=== PATIENT | female | born 1975 | race Caucasian/White ===

== ENCOUNTER 2018-07-07 22:14 | Emergency (ER) | payer OTHER ==
[~2018-07-07] VITALS: Ht 170.2 cm; Wt 54.9 kg
[2018-07-07] MEDS ORDERED: PROZAC10 MG PO (23:26)
[2018-07-07] MEDS ORDERED: NEXIUM40 MG PO (23:27)
[2018-07-07] MEDS ORDERED: CARVEDILOL12.5 MG PO (23:27)
[2018-07-07] MEDS ORDERED: PAXIL20 MG PO (23:27)
[2018-07-07 23:42] LABS: HEMATOCRIT 37.6 % (37.0-47.0); MCH 32.2 pg (26.0-34.0); MCHC 34.4 g/dL (28.0-37.0); MCV 93.5 fL (80.0-100.0); RBC 4.03 mil/uL (4.20-5.00); RDW 14.2 % (10.5-14.5); WBC 4.2 thou/uL (4.0-11.0)
[2018-07-07 23:55] LABS: ANION GAP 11 mmol/L (7-16); BUN 8 mg/dL (7-18); CALCIUM 8.6 mg/dL (8.5-10.1); CHLORIDE 107 mmol/L (98-107); CO2 24 mmol/L (21-32); CREATININE 0.8 mg/dL (0.6-1.0); GLUCOSE 93 mg/dL (74-106); POTASSIUM 3.6 mmol/L (3.5-5.1); SODIUM 142 mmol/L (136-145)
[2018-07-07 23:59] LABS: SALICYLATE < 2.8 mg/dL (2.8-20.0)
[2018-07-08 00:23] LABS: URINE BILIRUBIN NEGATIVE (Negative); URINE BLOOD TRACE (Negative); URINE CLARITY CLEAR; URINE COLOR YELLOW; URINE GLUCOSE-RANDOM* NEGATIVE (Negative); URINE KETONES NEGATIVE (Negative); URINE LEUKOCYTES-REFLEX NEGATIVE (Negative); URINE NITRITE-REFLEX NEGATIVE (Negative); URINE PROTEIN (DIPSTICK) NEGATIVE (Negative); URINE UROBILINOGEN 0.2 E.U./dl (0.2-1.0)
[2018-07-08 00:34] LABS: AMP/METHAMP Negative (Negative); BARBITURATES Negative (Negative); BENZODIAZEPINES Negative (Negative); COCAINE Negative (Negative); METHADONE Negative (Negative); OPIATES Negative (Negative); PCP Negative (Negative)
[2018-07-08] MEDS ORDERED: ATIVAN0.5 M1 PO (01:47)
[2018-07-08 01:56] VITALS: BP 124/76
[2018-07-10 17:10] LABS: TRICYCLIC (TCA) CONFIRMATION Negative ng/mL (Cutoff=100)
== END 2018-07-08 01:57 | disposition home or self-care (01) ==
LOC: ER 22:14
PROVIDERS: Emergency Medicine
DX: F41.9 Anxiety disorder, unspecified (principal); T43.225A Adverse effect of selective serotonin reuptake inhibitors, initial encounter; F50.2 Bulimia nervosa; I10 Essential (primary) hypertension; F32.9 Major depressive disorder, single episode, unspecified; Z88.2 Allergy status to sulfonamides; Z88.8 Allergy status to other drugs, medicaments and biological substances; Y92.89 Other specified places as the place of occurrence of the external cause

== ENCOUNTER 2018-07-18 22:23 | Emergency (ER) | payer OTHER ==
[~2018-07-18] VITALS: Ht 170.2 cm; Wt 56.7 kg
--- NOTE | ~2018-07-18 | EKG ---
[address] [address] ELECTROCARDIOGRAM REPORT Name: USMAN GARCIA Room #: [id number] Admission: 07/18/18 Attend Phys: Discharge: 07/19/18 Date of : 73 Report #: [id number] THIS REPORT FOR: //name// 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
[~2018-07-18 22:23] MED LIST: ATIVAN0.5 M1 PO; CARVEDILOL12.5 MG PO; NEXIUM40 MG PO; PAXIL20 MG PO; PROZAC10 MG PO
[2018-07-18] MEDS ORDERED: XANAX 0.25 MG0.25 MG PO (22:51)
[2018-07-18 22:59] LABS: HEMOGLOBIN 12.8 gm/dL (12.0-15.0); MCH 32.1 pg (26.0-34.0); MCHC 33.7 g/dL (28.0-37.0); MCV 95.1 fL (80.0-100.0); RDW 14.3 % (10.5-14.5); WBC 4.7 thou/uL (4.0-11.0)
[2018-07-18 23:02] LABS: URINE BILIRUBIN NEGATIVE (Negative); URINE BLOOD TRACE (Negative); URINE CLARITY CLEAR; URINE COLOR YELLOW; URINE GLUCOSE-RANDOM* NEGATIVE (Negative); URINE KETONES NEGATIVE (Negative); URINE LEUKOCYTES-REFLEX NEGATIVE (Negative); URINE NITRITE-REFLEX NEGATIVE (Negative); URINE PROTEIN (DIPSTICK) NEGATIVE (Negative); URINE SPECIFIC GRAVITY <= 1.005 (1.005-1.035); URINE UROBILINOGEN 0.2 E.U./dl (0.2-1.0)
[2018-07-18 23:06] LABS: ANION GAP 5 mmol/L (7-16); BUN 9 mg/dL (7-18); CALCIUM 9.5 mg/dL (8.5-10.1); CHLORIDE 107 mmol/L (98-107); CO2 28 mmol/L (21-32); CREATININE 0.8 mg/dL (0.6-1.0); GLUCOSE 92 mg/dL (74-106); POTASSIUM 3.8 mmol/L (3.5-5.1); SODIUM 140 mmol/L (136-145)
[2018-07-18 23:13] LABS: ALBUMIN 3.5 g/dL (3.4-5.0); SALICYLATE < 2.8 mg/dL (2.8-20.0); SGOT 17 U/L (15-37); SGPT 19 U/L (30-65); TOTAL BILIRUBIN 0.2 mg/dL (<0.1-1.0); TOTAL PROTEIN 6.7 g/dL (6.4-8.2)
[2018-07-18 23:16] LABS: AMP/METHAMP Negative (Negative); BARBITURATES Negative (Negative); BENZODIAZEPINES Negative (Negative); COCAINE Negative (Negative); METHADONE Negative (Negative); OPIATES Negative (Negative); PCP Negative (Negative)
[2018-07-19 01:34] VITALS: BP 135/84
== END 2018-07-19 01:38 | disposition home or self-care (01) ==
LOC: ER 22:23
PROVIDERS: Emergency Medicine
DX: F10.129 Alcohol abuse with intoxication, unspecified (principal); I10 Essential (primary) hypertension; F32.9 Major depressive disorder, single episode, unspecified; Z88.4 Allergy status to anesthetic agent; Z88.8 Allergy status to other drugs, medicaments and biological substances; Z88.6 Allergy status to analgesic agent; Z88.2 Allergy status to sulfonamides; Y90.0 Blood alcohol level of less than 20 mg/100 ml

== ENCOUNTER 2019-03-09 01:56 | Emergency (ER) | payer OTHER ==
[~2019-03-09] VITALS: Ht 170.2 cm; Wt 65.8 kg
[~2019-03-09 01:56] MED LIST changes: +XANAX 0.25 MG0.25 MG PO
[2019-03-09 02:46] LABS: URINE BILIRUBIN NEGATIVE (Negative); URINE BLOOD 2+ (Negative); URINE CLARITY CLEAR; URINE COLOR YELLOW; URINE GLUCOSE-RANDOM* NEGATIVE (Negative); URINE KETONES NEGATIVE (Negative); URINE LEUKOCYTES-REFLEX NEGATIVE (Negative); URINE NITRITE-REFLEX NEGATIVE (Negative); URINE PROTEIN (DIPSTICK) NEGATIVE (Negative); URINE UROBILINOGEN 0.2 E.U./dl (0.2-1.0)
[2019-03-09 02:54] LABS: AMP/METHAMP Negative (Negative); BARBITURATES Negative (Negative); BENZODIAZEPINES Negative (Negative); COCAINE Negative (Negative); METHADONE Negative (Negative); OPIATES Negative (Negative); PCP Negative (Negative)
[2019-03-09 03:04] LABS: BACTERIA-REFLEX 1-9 Few /HPF (None Seen); CASTS None Seen /LPF (None Seen); CRYSTALS None Seen /LPF (None Seen); MUCUS 0-3 Light strn/LPF (None Seen); SQUAMOUS 4-10 Moderate /LPF (0-3); URINE RBC 3-10 Few /HPF (0-2); URINE WBC-REFLEX 0-5 Rare /HPF (0-5)
[2019-03-09] MEDS ORDERED: HYDROCHLOROTHIA25 M2 PO (03:34)
[2019-03-09] MEDS ORDERED: COZAAR 25 MG TA25 M2 PO (03:34)
[2019-03-09 03:45] LABS: ABSOLUTE NEUTROPHILS 3.1 thou/uL (1.4-8.2); BASOPHILS 0.7 % (0.0-2.0); EOSINOPHILS 2.8 % (0.0-3.0); HEMATOCRIT 37.7 % (37.0-47.0); HEMOGLOBIN 12.9 gm/dL (12.0-15.0); MCH 32.3 pg (26.0-34.0); MCHC 34.1 g/dL (28.0-37.0); MCV 94.6 fL (80.0-100.0); MONOCYTES 5.5 % (1.0-8.0); PLATELET COUNT 119 thou/uL (150-400); RBC 3.98 mil/uL (4.20-5.00); RDW 13.7 % (10.5-14.5); WBC 4.5 thou/uL (4.0-11.0)
[2019-03-09 03:54] LABS: ANION GAP 9 mmol/L (7-16); BUN 14 mg/dL (7-18); CALCIUM 9.2 mg/dL (8.5-10.1); CHLORIDE 103 mmol/L (98-107); CO2 29 mmol/L (21-32); CREATININE 0.8 mg/dL (0.6-1.0); GLUCOSE 90 mg/dL (74-106); SODIUM 141 mmol/L (136-145)
[2019-03-09 04:00] LABS: ALBUMIN 3.7 g/dL (3.4-5.0); SALICYLATE < 2.8 mg/dL (2.8-20.0); SGOT 43 U/L (15-37); SGPT 43 U/L (30-65); TOTAL BILIRUBIN 0.2 mg/dL (<0.1-1.0); TOTAL PROTEIN 6.9 g/dL (6.4-8.2)
[2019-03-09] MEDS ORDERED: PEPCID40 MG PO (06:58)
[2019-03-09 07:13] VITALS: BP 138/87
== END 2019-03-09 07:14 | disposition home or self-care (01) ==
LOC: ER 01:56
PROVIDERS: Emergency Medicine
DX: F10.129 Alcohol abuse with intoxication, unspecified (principal); R45.851 Suicidal ideations; I10 Essential (primary) hypertension; F32.9 Major depressive disorder, single episode, unspecified; Z88.5 Allergy status to narcotic agent; Z88.8 Allergy status to other drugs, medicaments and biological substances; Z88.2 Allergy status to sulfonamides

== ENCOUNTER 2019-08-24 05:52 | Emergency (ER) | payer OTHER ==
[~2019-08-24] VITALS: Ht 170.2 cm; Wt 63.5 kg
[~2019-08-24 05:52] MED LIST changes: +COZAAR 25 MG TA25 M2 PO; +HYDROCHLOROTHIA25 M2 PO; +PEPCID40 MG PO
[2019-08-24] MEDS ORDERED: QUETIAPINE FUM200 MG PO (06:01)
[2019-08-24] MEDS ORDERED: TRAZODONE HCL100 MG PO (06:02)
[2019-08-24] MEDS ORDERED: HYDROXYZINE HCL25 M2 PO (06:02)
[2019-08-24 06:22] LABS: ABSOLUTE NEUTROPHILS 5.2 thou/uL (1.4-8.2); BASOPHILS 0.7 % (0.0-2.0); EOSINOPHILS 1.6 % (0.0-3.0); HEMATOCRIT 37.7 % (37.0-47.0); HEMOGLOBIN 12.4 gm/dL (12.0-15.0); LYMPHOCYTES 11.7 % (24.0-44.0); MCH 30.4 pg (26.0-34.0); MCV 92.2 fL (80.0-100.0); MONOCYTES 6.7 % (1.0-8.0); PLATELET COUNT 83 thou/uL (150-400); POLYS 79.3 % (36.0-66.0); RBC 4.08 mil/uL (4.20-5.00); RDW 13.2 % (10.5-14.5); WBC 6.6 thou/uL (4.0-11.0)
[2019-08-24 06:31] LABS: ANION GAP 5 mmol/L (7-16); BUN 11 mg/dL (7-18); CALCIUM 9.5 mg/dL (8.5-10.1); CHLORIDE 99 mmol/L (98-107); CO2 31 mmol/L (21-32); CREATININE 0.8 mg/dL (0.6-1.0); GLUCOSE 110 mg/dL (74-106); SODIUM 135 mmol/L (136-145)
[2019-08-24 06:41] LABS: ALBUMIN 3.8 g/dL (3.4-5.0); LIPASE 139 U/L (73-393); SGOT 20 U/L (15-37); SGPT 11 U/L (30-65); TOTAL BILIRUBIN 0.3 mg/dL (<0.1-1.0); TOTAL PROTEIN 7.1 g/dL (6.4-8.2); TROPONIN-I <0.06 ng/mL (<0.06)
[2019-08-24 07:19] LABS: URINE BILIRUBIN NEGATIVE (Negative); URINE BLOOD TRACE (Negative); URINE CLARITY CLEAR; URINE COLOR YELLOW; URINE GLUCOSE-RANDOM* NEGATIVE (Negative); URINE KETONES NEGATIVE (Negative); URINE LEUKOCYTES-REFLEX NEGATIVE (Negative); URINE PROTEIN (DIPSTICK) NEGATIVE (Negative); URINE SPECIFIC GRAVITY <= 1.005 (1.005-1.035); URINE UROBILINOGEN 0.2 E.U./dl (0.2-1.0)
[2019-08-24 07:23] LABS: URINE NITRITE-REFLEX POSITIVE (Negative)
[2019-08-24 07:27] LABS: AMP/METHAMP Negative (Negative); BARBITURATES Negative (Negative); BENZODIAZEPINES Negative (Negative); COCAINE Negative (Negative); METHADONE Negative (Negative); OPIATES Negative (Negative); PCP Negative (Negative)
[2019-08-24 07:29] LABS: CASTS None Seen /LPF (None Seen); SQUAMOUS None Seen /LPF (0-3)
[2019-08-24 07:30] LABS: BACTERIA-REFLEX None Seen /HPF (None Seen); URINE RBC 0-2 Rare /HPF (0-2)
[2019-08-24 07:31] LABS: CRYSTALS None Seen /LPF (None Seen)
[2019-08-24 07:32] LABS: URINE WBC-REFLEX None Seen /HPF (0-5)
--- NOTE | 2019-08-24 08:06 | EKG ---
[place] [address] [place] [address] ELECTROCARDIOGRAM REPORT Name: USMAN GARCIA Room #: REG [facility]#: [id number] Admission: 08/24/19 Attend Phys: Discharge: Date of : 73 Report #: [id number] THIS REPORT FOR: //name// 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 : 1975 Requested By: Rd Devries Order Number: [id number] MD: Austin Pitts Measurements Intervals [place] Rate: 77 P: 64 [place]: 203 QRS: 53 QRSD: 100 T: 66 QT: 391 QTc: 443 Interpretive Statements Sinus rhythm Borderline prolonged DE interval RSR' in V1 or V2, probably normal variant Compared to ECG 07/18/2018 23:25:06 No significant changes Electronically Signed On 08-24-2019 8:06:37 [employer] by Austin Pitts [email or web address] <ELECTRONICALLY SIGNED> By: Austin Pitts MD, [facility] 08/24/19 0806 0633 2 Austin Pitts MD, FACC /EPI
[2019-08-24] MEDS ORDERED: ONDANSETRON ODT8 MG PO (08:07)
[2019-08-24] MEDS ORDERED: TRAMADOL 50 MG50 MG PO (08:07)
[2019-08-24 11:18] VITALS: BP 129/78
== END 2019-08-24 11:27 | disposition home or self-care (01) ==
LOC: ER 05:52
PROVIDERS: Emergency Medicine
DX: E87.6 Hypokalemia (principal); R11.2 Nausea with vomiting, unspecified; M54.5 Low back pain; D69.6 Thrombocytopenia, unspecified; I10 Essential (primary) hypertension; F32.9 Major depressive disorder, single episode, unspecified; Z88.2 Allergy status to sulfonamides; Z88.8 Allergy status to other drugs, medicaments and biological substances; Z79.899 Other long term (current) drug therapy

== ENCOUNTER 2019-08-26 06:34 | Emergency (ER) | payer OTHER ==
[~2019-08-26] VITALS: Ht 170.2 cm; Wt 63.5 kg
[~2019-08-26 06:34] MED LIST changes: +HYDROXYZINE HCL25 M2 PO; +ONDANSETRON ODT8 MG PO; +QUETIAPINE FUM200 MG PO; +TRAMADOL 50 MG50 MG PO; +TRAZODONE HCL100 MG PO
[2019-08-26 07:21] LABS: URINE BILIRUBIN NEGATIVE (Negative); URINE BLOOD 3+ (Negative); URINE CLARITY CLOUDY; URINE COLOR YELLOW; URINE GLUCOSE-RANDOM* NEGATIVE (Negative); URINE KETONES NEGATIVE (Negative); URINE LEUKOCYTES-REFLEX 2+ (Negative); URINE NITRITE-REFLEX POSITIVE (Negative); URINE PROTEIN (DIPSTICK) 1+ (Negative); URINE UROBILINOGEN 0.2 E.U./dl (0.2-1.0)
[2019-08-26 07:38] LABS: SQUAMOUS >10 Many /LPF (0-3)
[2019-08-26 07:39] LABS: CASTS None Seen /LPF (None Seen); CRYSTALS None Seen /LPF (None Seen)
[2019-08-26 07:40] LABS: URINE RBC 3-10 Few /HPF (0-2); URINE WBC-REFLEX 6-15 Few /HPF (0-5)
[2019-08-26 07:54] LABS: EOSINOPHILS 1.6 % (0.0-3.0); HEMATOCRIT 35.3 % (37.0-47.0); HEMOGLOBIN 11.7 gm/dL (12.0-15.0); LYMPHOCYTES 20.3 % (24.0-44.0); MCH 30.6 pg (26.0-34.0); MCHC 33.1 g/dL (28.0-37.0); MCV 92.4 fL (80.0-100.0); MONOCYTES 5.5 % (1.0-8.0); PLATELET COUNT 123 thou/uL (150-400); POLYS 71.6 % (36.0-66.0); RBC 3.83 mil/uL (4.20-5.00); RDW 13.4 % (10.5-14.5); WBC 4.2 thou/uL (4.0-11.0)
[2019-08-26 08:02] LABS: CALCIUM 8.9 mg/dL (8.5-10.1); CREATININE 0.8 mg/dL (0.6-1.0); MAGNESIUM 1.8 mg/dL (1.8-2.4); POTASSIUM 3.4 mmol/L (3.5-5.1)
[2019-08-26 08:41] LABS: URINE BILIRUBIN NEGATIVE (Negative); URINE BLOOD TRACE (Negative); URINE CLARITY SL CLOUDY; URINE COLOR YELLOW; URINE GLUCOSE-RANDOM* NEGATIVE (Negative); URINE KETONES NEGATIVE (Negative); URINE NITRITE-REFLEX NEGATIVE (Negative); URINE PROTEIN (DIPSTICK) NEGATIVE (Negative); URINE SPECIFIC GRAVITY <= 1.005 (1.005-1.035); URINE UROBILINOGEN 0.2 E.U./dl (0.2-1.0)
[2019-08-26 08:42] LABS: URINE LEUKOCYTES-REFLEX 3+ (Negative)
[2019-08-26 08:55] LABS: SQUAMOUS >10 Many /LPF (0-3)
[2019-08-26 08:56] LABS: BACTERIA-REFLEX >30 Many /HPF (None Seen); CASTS None Seen /LPF (None Seen); CRYSTALS None Seen /LPF (None Seen); URINE RBC 0-2 Rare /HPF (0-2); URINE WBC-REFLEX 6-15 Few /HPF (0-5)
[2019-08-26] MEDS ORDERED: KEFLEX500 M1 PO (09:09)
[2019-08-26] MEDS ORDERED: PHENERGAN 25 MG25 M1 PO (09:11)
[2019-08-26 09:21] VITALS: BP 147/93
== END 2019-08-26 09:47 | disposition home or self-care (01) ==
LOC: ER 06:34
PROVIDERS: Emergency Medicine
DX: S71.111A Laceration without foreign body, right thigh, initial encounter (principal); N39.0 Urinary tract infection, site not specified; R11.2 Nausea with vomiting, unspecified; I10 Essential (primary) hypertension; F32.9 Major depressive disorder, single episode, unspecified; Z88.2 Allergy status to sulfonamides; Z88.8 Allergy status to other drugs, medicaments and biological substances; W01.198A Fall on same level from slipping, tripping and stumbling with subsequent striking against other object, initial encounter; Y93.89 Activity, other specified; Y92.89 Other specified places as the place of occurrence of the external cause; Y99.8 Other external cause status

== ENCOUNTER 2019-09-15 13:39 | Emergency (ER) | payer OTHER ==
[~2019-09-15] VITALS: Ht 170.2 cm; Wt 63.5 kg
[~2019-09-15 13:39] MED LIST changes: +KEFLEX500 M1 PO; +PHENERGAN 25 MG25 M1 PO
[2019-09-15 14:52] LABS: ABSOLUTE NEUTROPHILS 6.5 thou/uL (1.4-8.2); BASOPHILS 0.4 % (0.0-2.0); HEMATOCRIT 40.5 % (37.0-47.0); HEMOGLOBIN 13.3 gm/dL (12.0-15.0); LYMPHOCYTES 11.2 % (24.0-44.0); MCH 30.5 pg (26.0-34.0); MCHC 32.8 g/dL (28.0-37.0); MCV 92.9 fL (80.0-100.0); MONOCYTES 3.4 % (1.0-8.0); PLATELET COUNT 137 thou/uL (150-400); RBC 4.37 mil/uL (4.20-5.00); RDW 13.4 % (10.5-14.5); WBC 7.7 thou/uL (4.0-11.0)
[2019-09-15 14:54] LABS: URINE BILIRUBIN NEGATIVE (Negative); URINE BLOOD TRACE (Negative); URINE CLARITY CLEAR; URINE COLOR YELLOW; URINE GLUCOSE-RANDOM* NEGATIVE (Negative); URINE KETONES 1+ (Negative); URINE LEUKOCYTES-REFLEX NEGATIVE (Negative); URINE NITRITE-REFLEX NEGATIVE (Negative); URINE PROTEIN (DIPSTICK) 1+ (Negative); URINE SPECIFIC GRAVITY 1.015 (1.005-1.035); URINE UROBILINOGEN 0.2 E.U./dl (0.2-1.0)
[2019-09-15 15:00] LABS: ALBUMIN 4.4 g/dL (3.4-5.0); CREATININE 0.9 mg/dL (0.6-1.0); MAGNESIUM 1.6 mg/dL (1.8-2.4); POTASSIUM 3.5 mmol/L (3.5-5.1); TOTAL BILIRUBIN 0.6 mg/dL (<0.1-1.0); TOTAL PROTEIN 8.1 g/dL (6.4-8.2)
[2019-09-15 15:04] LABS: SQUAMOUS >10 Many /LPF (0-3)
[2019-09-15 15:05] LABS: BACTERIA-REFLEX 1-9 Few /HPF (None Seen); CASTS None Seen /LPF (None Seen); CRYSTALS None Seen /LPF (None Seen); URINE RBC 0-2 Rare /HPF (0-2); URINE WBC-REFLEX 0-5 Rare /HPF (0-5)
[2019-09-15] MEDS ORDERED: CHLORDIAZEPOXID25 M1 PO (16:51)
[2019-09-15 17:13] VITALS: BP 129/85
== END 2019-09-15 17:15 | disposition home or self-care (01) ==
LOC: ER 13:39
PROVIDERS: Emergency Medicine Emergency Medical Services
DX: F10.20 Alcohol dependence, uncomplicated (principal); E83.42 Hypomagnesemia; R11.2 Nausea with vomiting, unspecified; R10.13 Epigastric pain; I10 Essential (primary) hypertension; Z88.2 Allergy status to sulfonamides; Z88.8 Allergy status to other drugs, medicaments and biological substances; Z79.899 Other long term (current) drug therapy; Y90.9 Presence of alcohol in blood, level not specified

== ENCOUNTER 2021-02-26 13:57 | Emergency (ER) | payer OTHER ==
[~2021-02-26] VITALS: Ht 172.7 cm; Wt 59.0 kg
[~2021-02-26 13:57] MED LIST changes: +CHLORDIAZEPOXID25 M1 PO
[2021-02-26 14:27] LABS: ABSOLUTE NEUTROPHILS 4.9 thou/uL (1.4-8.2); BASOPHILS 0.7 % (0.0-2.0); EOSINOPHILS 0.2 % (0.0-3.0); HEMATOCRIT 41.6 % (37.0-47.0); HEMOGLOBIN 14.2 gm/dL (12.0-15.0); LYMPHOCYTES 12.1 % (24.0-44.0); MCH 32.2 pg (26.0-34.0); MCHC 34.1 g/dL (28.0-37.0); MCV 94.6 fL (80.0-100.0); MONOCYTES 2.3 % (1.0-8.0); PLATELET COUNT 170 thou/uL (150-400); POLYS 84.7 % (36.0-66.0); RBC 4.39 mil/uL (4.20-5.00); RDW 13.7 % (10.5-14.5); WBC 5.8 thou/uL (4.0-11.0)
[2021-02-26 14:38] LABS: ANION GAP 10 mmol/L (7-16); BUN 10 mg/dL (7-18); CALCIUM 8.5 mg/dL (8.5-10.1); CHLORIDE 109 mmol/L (98-107); CO2 27 mmol/L (21-32); CREATININE 0.8 mg/dL (0.6-1.0); GLUCOSE 106 mg/dL (74-106); POTASSIUM 3.8 mmol/L (3.5-5.1); SODIUM 146 mmol/L (136-145)
[2021-02-26 14:48] LABS: ALBUMIN 3.4 g/dL (3.4-5.0); SGOT 24 U/L (15-37); SGPT 25 U/L (30-65); TOTAL BILIRUBIN 0.2 mg/dL (0.2-1.0); TOTAL PROTEIN 6.8 g/dL (6.4-8.2); TROPONIN-I <0.06 ng/mL (<0.06)
--- NOTE | 2021-02-26 15:31 | EKG ---
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
[2021-02-26] MEDS ORDERED: ZOFRAN ODT4 MG PO (16:03)
[2021-02-26] MEDS ORDERED: ATIVAN2 MG PO (16:03)
[2021-02-26 17:00] VITALS: BP 134/93
== END 2021-02-26 17:00 | disposition home or self-care (01) ==
LOC: ER 13:57
PROVIDERS: Emergency Medicine
DX: R07.89 Other chest pain (principal); F10.239 Alcohol dependence with withdrawal, unspecified; E86.0 Dehydration; R11.2 Nausea with vomiting, unspecified; I10 Essential (primary) hypertension; F32.9 Major depressive disorder, single episode, unspecified; Z79.899 Other long term (current) drug therapy; Z79.2 Long term (current) use of antibiotics; Z88.2 Allergy status to sulfonamides; Z88.8 Allergy status to other drugs, medicaments and biological substances